=== PATIENT | male | born 1970 | race Caucasian/White ===

== ENCOUNTER 2018-08-29 01:05 | Outpatient (CLI) | payer BC, SELFPAY ==
[2018-08-29 10:43] LABS: BUN 20 mg/dL (7-18); CREATININE 0.97 mg/dL (0.70-1.30); Calcium 8.9 mg/dL (8.5-10.1); Chloride 103 mmol/L (98-107); Cholesterol 217 mg/dL (50-200); Glucose 88 mg/dL (70-100); HDL Cholesterol 34 mg/dL (40-60); LDL CHOLESTEROL 142 mg/dL (<100); Potassium 4.1 mmol/L (3.5-5.1); Sodium 141 mmol/L (136-145); Triglyceride 151 mg/dL (30-150)
== END 2018-08-29 01:25 ==
PROVIDERS: PCP Family Medicine; Visit Provider Family Medicine
DX: Z00.00 Encounter for general adult medical examination without abnormal findings (principal); Z13.220 Encounter for screening for lipoid disorders; Z13.228 Encounter for screening for other metabolic disorders
CPT/HCPCS: 36415; 80048; 80061; 83721

== ENCOUNTER 2019-06-21 08:06 | Outpatient (CLI) | payer BC, SELFPAY ==
[2019-06-21 09:46] LABS: Anion Gap 6.1 mmol/L (3-11); BUN 18 mg/dL (7-18); CO2 30.9 mmol/L (21.0-32.0); CREATININE 1.06 mg/dL (0.70-1.30); Calcium 8.9 mg/dL (8.5-10.1); Calculated LDL 145 mg/dL (<100); Chloride 104 mmol/L (98-107); Cholesterol 216 mg/dL (<200); Glucose 90 mg/dL (74-106); HDL Cholesterol 40 mg/dL (40-60); Potassium 4.2 mmol/L (3.5-5.1); Sodium 141 mmol/L (136-145); Triglyceride 159 mg/dL (<150)
[2019-06-24 10:30] LABS: PSA, Screening 0.6 ng/mL (0.0-3.5)
== END 2019-06-21 08:26 ==
PROVIDERS: PCP Family Medicine; Visit Provider Family Medicine
DX: Z00.00 Encounter for general adult medical examination without abnormal findings (principal); I10 Essential (primary) hypertension; Z12.5 Encounter for screening for malignant neoplasm of prostate
CPT/HCPCS: 36415; 80048; 80061; 84153

== ENCOUNTER 2020-04-06 03:15 | Outpatient (CLI) | payer BC, SELFPAY ==
[2020-04-07 11:08] LABS: SARS-CoV-2 RNA Not Detected (NotDetected); SARS-CoV-2 RNA Source Nasal/Nares
== END 2020-04-06 03:35 ==
PROVIDERS: Surgery; Visit Provider Surgery
DX: Z01.818 Encounter for other preprocedural examination (principal)
CPT/HCPCS: U0003

== ENCOUNTER 2020-04-09 07:17 | Day surgery (SDC) | payer BC, SELFPAY ==
[2020-04-09 07:30] VITALS: BP 114/83; PULSE 76; RESP 18; TEMP 36; O2SAT 98
[2020-04-09] MEDS: Lactated Ringers 1,000 ML 80 ML IV (07:50)
--- NOTE | 2020-04-09 09:08 | BOWEL_PTH ---
PATIENT: Ld Person LOC: [facility] U#:[id number] AGE/SX: 49/M ROOM: RE04/09/[address]: Chayito Lugo : 1970 BED: DIS: 04/09/2020 SPEC #: [id number] RECD: 04/09/20 13:01 STATUS: VI DURBIN #: [id number] SHAWNA: 04/09/20 09:[address]: Chayito Lugo DEPT: Surgical Specimen RECD BY: Lisa Ferrara ENTERED: 04/09/20 13:02 SP TYPE: Bowel OTHR DR: Safia Hutton APRN Tissues: 1 - BIOPSY BOWEL Procedures: GROSS AND MICRO LEVEL 4 Comments: [id number] ([id number] [facility] [place])
--- NOTE | 2020-04-09 09:26 | W.PM.DSUDISC ---
Discharge Plan Disposition Patient Disposition: HOME Condition: Good Discharge Details Reason For Visit: colon scope Attending Provider: Chayito Lugo Primary Care Provider: Safia Hutton Home Meds and New Rx's Prescriptions: Discontinued bisacodyl [Dulcolax (bisacodyl)] 5 mg tablet,delayed release (DR/EC) 5 mg PO ONCE Qty: 4 RF: 0 polyethylene glycol 3350 17 gram powder in packet 255 g PO DAILY Qty: 15 RF: 0 Discharge Instructions Additional Instructions: Findings:small colon polyps Follow up:repeat scope in 5-10 yrs. Will send a letter w/ results. Please call if you develop: fevers >101.5 Nausea or Vomiting Abdominal pain that is not transient DAY SURGERY UNIT POST COLONOSCOPY INSTRUCTIONS 1. Because there will be medication in your system for the next 24 hours, you may feel a little sleepy. Your coordination will be affected. Therefore: a. Do not drive or operate dangerous equipment for 24 hours. b. Do not drink alcohol beverages for 24 hours (not even beer). c. Plan to go home and rest for the day. 2. Generally there are no restrictions on your activity after a day or so has gone by, but you may feel a bit fatigued for a few days. 3 After you arrive home you may have a light meal and return to a normal diet as you can tolerate it without feeling sick to your stomach. 4. After surgery, you may feel pain or discomfort. This should be only transient, but if it persists please contact your doctor. 5. If there are any questions regarding the findings of your procedure, please feel free to contact your doctor. 6. If you are unable to contact your doctor with a problem, contact the hospital at [phone]. 7. Continue all your regular medications unless directed otherwise. I understand the above instructions and have no questions. Signature of Patient or Responsible Adult Escort Date/Time Name of Responsible Adult Escort Signature of Nurse Date/Time Discharge Orders Discharge Orders: Discharge Order (Routine); Ordered 04/09/20 Ordered By: Chayito Lugo DS: Diagnosis Discharge Diagnosis (1) Colon polyp: Status: Acute
[2020-04-09 09:55] VITALS: BP 140/89; PULSE 93; RESP 16; TEMP 36; O2SAT 96
--- NOTE | 2020-04-20 22:32 | W.COLOREPORT ---
Date of service: 04/09/20 Time of Service: 11:00 Colonoscopy Report Date of procedure: 04/20/20 Pre-op diagnosis general: screening Post-op diagnosis procedure note: other Procedure: cold polypectomy at 50cm Anesthesia proc note operative: GETA Estimated blood loss (mL): 1 Pathology: other Complications: None Disposition: same day Prep: Miralax/Dulcolax Retraction Time: 8 mins Procedure Description: After informed consent was obtained the patient was taken to the procedure room and placed in a left decubitous position. Monitors were applied and a time out was done. The patients name, date of , procedure, allergies to medications and metal in their body was reviewed. The patient was then sedated. Once sedated and comfortable a rectal exam was done. External exam was normal. Internal exam revealed a normal sphincter tone and no palpable masses. The scope was then introduced and retrofelexed. No internal hemorrhoids were identified. The scope was then advanced to the cecum w/out difficulty. The TI and appendiceal orifice were identified. The prep was good. The scope was then slowly retracted over 8 minutes back into the rectum. Polyps were removed at 50-cm- cold polypectomy forcepts. They was no bleeding. They are no polyp or diverticula. Mucosa is pink adn healthy.. The scope was removed and the patient was woken up and taken back to Same day surgery in stable condition. The patient tolerated the procedure well and there were no immediate complications. Follow up: The patient should follow up in 5-10 years. pd path, unless they develop changes in bowel habits or other new gastrointestinal complaints.
== END 2020-04-09 10:45 | disposition home or self-care (01) ==
PROVIDERS: Visit Provider Surgery
PROC: 0DJD8ZZ Inspection of Lower Intestinal Tract, Via Natural or Artificial Opening Endoscopic (ICD-10-PCS; CPT 45378; principal; 2020-04-09 08:30)
DX: Z12.11 Encounter for screening for malignant neoplasm of colon (principal); D12.5 Benign neoplasm of sigmoid colon
CPT/HCPCS: 45380; 88305; J2001

== ENCOUNTER 2021-10-21 10:57 | Outpatient (CLI) | payer BC, SELFPAY ==
--- NOTE | 2021-10-21 08:00 | DI.RAD_ITS ---
Exam(s) XR KNEE LT 3V AP,LAT,DANIELA EXAM: XR KNEE LT 3V AP,LAT,DANIELA CLINICAL HISTORY: pain through winter. TECHNIQUE: 2D digital imaging was performed. COMPARISON: No exams were available for comparison FINDINGS: 3 views There is no evidence of fracture nor joint effusion. Bone density normal. No osseous lesions. Mini mal degenerative changes. No osteophytes. No osteochondral defects. No osseous lesions. IMPRESSION: DATA REPOSITORY: RADIATION DOSE DELIVERED:
--- NOTE | 2021-10-21 08:39 | DI.RAD_ITS ---
Exam(s) XR KNEE RT 3V AP,LAT,DANIELA EXAM: XR KNEE RT 3V AP,LAT,DANIELA CLINICAL HISTORY: pain through winter. TECHNIQUE: 2D digital imaging was performed. COMPARISON: CR XR KNEE LT 3V AP,LAT,DANIELA from 10/21/2021 FINDINGS: 3 views There is no evidence of fracture or obvious joint effusion. Minimal if any significant degenerative changes. No osteophytes. Bone density normal. No significant osseous lesions. IMPRESSION: DATA REPOSITORY: RADIATION DOSE DELIVERED:
== END 2021-10-21 10:58 | disposition home or self-care (01) ==
LOC: DIORS 10:59
PROVIDERS: Visit Provider Physician Assistant Surgical
DX: M25.561 Pain in right knee (principal); M25.562 Pain in left knee
CPT/HCPCS: 73562

== ENCOUNTER 2023-09-15 00:58 | Outpatient (CLI) | payer BC, SELFPAY ==
[2023-09-15 12:51] LABS: Calculated LDL 126 mg/dL (<100); Cholesterol 222 mg/dL (<200); HDL Cholesterol 41 mg/dL (40-60); Triglyceride 278 mg/dL (<150)
[2023-09-15 12:57] LABS: Hemoglobin A1C 5.2 % (<5.7)
[2023-09-15 18:13] LABS: PSA, Screening 0.8 ng/mL (<=3.5)
== END 2023-09-15 00:59 | disposition home or self-care (01) ==
LOC: LOS 00:58
PROVIDERS: PCP Nurse Practitioner Family; Visit Provider Nurse Practitioner Family
DX: Z00.00 Encounter for general adult medical examination without abnormal findings (principal); E78.5 Hyperlipidemia, unspecified; Z13.1 Encounter for screening for diabetes mellitus
CPT/HCPCS: 36415; 80061; 84153; 83036

== ENCOUNTER 2023-11-10 13:42 | Outpatient (REF) | payer BC, SELFPAY ==
--- NOTE | 2023-11-10 08:30 | SKI_PTH ---
PATIENT: Ld Person LOC: [facility] U#:[id number] AGE/SX: 53/M ROOM: RE11/10/[address]: Ky Best DO : 1970 BED: DIS: 11/10/2023 SPEC #: [id number] RECD: 11/10/23 16:31 STATUS: VI REHank #: [id number] SHAWNA: 11/10/23 08:[address]: Ky Best DEPT: Surgical Specimen RECD BY: Lisa Ferrara ENTERED: 11/10/23 16:31 SP TYPE: LYNNE MCCLOUD DR: Jakub Beasley, HEALTH CARE FACILITY ADMINISTRATOR Tissues: 1 - SKIN BIOPSY(SHAVE/PUNCH) Procedures: SKIN LEVEL 4 Comments: [id number]
== END 2023-11-10 13:43 | disposition home or self-care (01) ==
LOC: LBN 13:42
PROVIDERS: PCP Nurse Practitioner Family; Visit Provider Otolaryngology Otolaryngology/Facial Plastic Surgery
DX: D22.62 Melanocytic nevi of left upper limb, including shoulder (principal); L82.1 Other seborrheic keratosis
CPT/HCPCS: 88305